=== PATIENT | female | born 1965 | race Caucasian/White ===

== ENCOUNTER 2016-11-11 15:43 | Emergency (ER) | payer OTHER ==
[2016-11-11 16:09] LABS: BASOPHIL % 0.1 % (0.0-0.4); Eosinophil % 3.3 % (0.00-5.0); Granulocytes % 61.4 % (36.0-66.0); Lymphocytes % 24.6 % (24.0-44.0); Mean Cell Volume 96.3 fl (78-100); Mean Corpuscular Hemoglobin 31.5 pg (26-32); Mean Platelet Volume 8.3 fl (6-9.5); Monocytes % 10.6 % (0.0-12.0); Platelet Count 269 K/mm3 (150-450); Red Blood Count 4.54 M/mm3 (4.1-5.4); Red Cell Distribution Width 13.5 % (11.5-14.0)
[2016-11-11 16:25] LABS: COMPLETE URINE MICROSCOPIC? YES; Collection Type VOID
[2016-11-11 16:26] LABS: ADD URINE CULTURE? YES (NO); Bacteria FEW /HPF (NEGATIVE); Epithelial Cells FEW /HPF (FEW)
--- NOTE | 2016-11-11 16:43 | ERPHSYRPT ---
- History of Present Illness Time Seen by Provider: 11/11/16 16:37 Historian: patient Exam Limitations: no limitations Patient Subjective Stated Complaint: pt states she began having right lower abdominal pain that started last pm. pt states her pain is worse with movement. Triage Nursing Assessment: pt pink, warm, dry. abdomen obese. bowels ounds present in all 4 quads. Physician History: The patient is a 51-year-old female brought in by ambulance complaining of increasing right lower quadrant abdominal pain since yesterday. She denies nausea or vomiting. She denies diarrhea. She denies fever or chills. Her past surgical history is significant for and knee surgery. Her past medical history is significant for hypertension, diabetes, kidney stones, and neuropathy. Timing/Duration: yesterday Activities at Onset: none Quality: sharpness Abdominal Pain Onset Location: RLQ Pain Radiation: no radiation Severity of Pain-Max: mild Severity of Pain-Current: moderate Modifying Factors: Improves With: nothing Associated Symptoms: denies symptoms Previous symptoms: no prior history Allergies/Adverse Reactions: methadone [Methadone] Allergy (Unverified 11/11/16 15:49) Rash tetracycline [Tetracycline] Allergy (Unverified 11/11/16 15:49) Rash Home Medications: Methocarbamol 750 mg PO TID 10/10/12 [History] Amlodipine Besylate 10 mg [Norvasc 10 MG] 10 mg PO DAILY 11/06/16 [History] Cholecalciferol (Vitamin D3) [Vitamin D3] 5,000 unit PO DAILY 11/06/16 [History] Gabapentin [Neurontin] 800 mg PO TID 11/06/16 [History] Glyburide Micronized 3 mg [Glynase 3 MG] 3 mg PO DAILY 11/06/16 [History] Lisinopril [Zestril 40 mg] 40 mg PO DAILY 11/06/16 [History] Metoprolol Tartrate 50 mg [Lopressor 50 MG] 50 mg PO BID 11/06/16 [History ] Milnacipran HCl [Savella] 100 mg PO BID 11/06/16 [History] Quetiapine Fumarate [Seroquel Xr] 400 mg PO HS 11/06/16 [History] Quetiapine Fumarate [Seroquel] 50 mg PO TID 11/06/16 [History] Trazodone HCl [Desyrel] 100 mg PO HS 11/06/16 [History] Hx Tetanus, Diphtheria Vaccination/Date Given: Yes (unknown) Hx Influenza Vaccination/Date Given: No Hx Pneumococcal Vaccination/Date Given: No Immunizations Up to Date: Yes - Review of Systems Constitutional: No Fever, No Chills Eyes: No Symptoms Ears, Nose, & Throat: No Symptoms Respiratory: No Cough, No Dyspnea Cardiac: No Chest Pain, No Edema, No Syncope Abdominal/Gastrointestinal: Abdominal Pain Genitourinary Symptoms: No Dysuria Musculoskeletal: No Back Pain, No Neck Pain Skin: No Rash Neurological: No Dizziness, No Focal Weakness, No Sensory Changes Psychological: No Symptoms Endocrine: No Symptoms Hematologic/Lymphatic: No Symptoms Immunological/Allergic: No Symptoms All Other Systems: Reviewed and Negative - Past Medical History Pertinent Past Medical History: Yes Cardiac History: High Cholesterol, Hypertension Endocrine Medical History: Diabetes Type II Musculoskeletal History: Fibromyalgia, Osteoarthritis, Rheumatoid Arthritis Psycho-Social History: Anxiety, Depression Other Medical History: rsd - Past Surgical History Past Surgical History: Yes Gastrointestinal: Cholecystectomy Musculoskeletal: Orthopedic Surgery Female Surgical History: Section Other Surgical History: t&a - Social History Smoking Status: Current every day smoker How long have you smoked: 28 Exposure to second hand smoke: Yes Drug Use: none Patient Lives Alone: No - Female History Hx Last Menstrual Period: 2 months-irregular - Nursing Vital Signs Nursing Vital Signs: Initial Vital Signs Pulse Rate 70 Respiratory Rate 18 Blood Pressure [Right Arm] 130/71 Pain Intensity 0 - Physical Exam General Appearance: no apparent distress, alert Eye Exam: PERRL/EOMI, eyes nml inspection Ears, Nose, Throat Exam: normal ENT inspection, pharynx normal, moist mucous membranes Neck Exam: normal inspection, non-tender, supple, full range of motion Respiratory Exam: normal breath sounds, lungs clear, No respiratory distress Cardiovascular Exam: regular rate/rhythm, normal heart sounds Gastrointestinal/Abdomen Exam: tenderness (RLQ, rebound tenderness), rebound Pelvic Exam: not done Rectal Exam: not done Back Exam: normal inspection Extremity Exam: normal inspection, normal range of motion, pelvis stable Neurologic Exam: alert, oriented x 3, cooperative, normal mood/affect, nml cerebellar function, sensation nml, No motor deficits Skin Exam: normal color, warm, dry SpO2 Interpretation: normal SpO2: 99 Oxygen Delivery: Room Air - CT Exams Abdomen/Pelvis CT Interpretation: Tele-radiologist Report, Normal Appendix, Other (micro nonobstructing calculi bilateral kidneys, Normal appendix, no acute findings per Dr Patel.) Ordered Tests: Active Orders 24 hr Category Date Time Status IV Insertion STAT Care 11/11/16 15:52 Active ABDOMEN AND PELVIS W/0 CONTRAS [CT] Stat Exams 11/11/16 16:46 Taken AMYLASE Stat Lab 11/11/16 16:05 Completed CBC W DIFF Stat Lab 11/11/16 16:05 Completed CMP Stat Lab 11/11/16 16:05 Completed CULTURE,URINE Stat Lab 11/11/16 16:05 Received LIPASE Stat Lab 11/11/16 16:05 Completed UA W/ MICROSCOPIC Stat Lab 11/11/16 16:05 Completed UA W/RFX UR CULTURE Stat Lab 11/11/16 16:05 Completed Medication Summary Discontinued Medications Generic Name Dose Route Start Last Admin Trade Name Freq PRN Reason Stop Dose Admin Sodium Chloride 1,000 mls @ 999 mls/hr 11/11/16 16:45 11/11/16 17:07 Sodium Chloride 0.9% 1000 Ml IV 11/11/16 17:45 999 mls/hr .Q1H1M STA Administration Sodium Chloride Confirm 11/11/16 17:05 Sodium Chloride 0.9% 1000 Ml Administered 11/11/16 17:06 Dose 1,000 mls @ ud .ROUTE .STK-MED ONE Ketorolac Tromethamine 30 mg 11/11/16 16:45 11/11/16 17:07 Toradol 30 Mg Injection IV 11/11/16 16:46 30 mg STAT ONE Administration Ketorolac Tromethamine Confirm 11/11/16 17:05 Toradol 30 Mg Injection Administered 11/11/16 17:06 Dose 30 mg .ROUTE .STK-MED ONE Lab/Rad Data: Laboratory Result Diagrams 11/11/16 16:05 11/11/16 16:05 Laboratory Results 11/11/16 11/11/16 11/11/16 Range/Units 16:05 16:05 16:05 WBC 7.0 (4.0-10.5) K/mm3 RBC 4.54 (4.1-5.4) M/mm3 Hgb 14.3 (12.0-16.0) gm/dl Hct 43.7 (35-47) % MCV 96.3 (78-100) fl MCH 31.5 (26-32) pg MCHC 32.7 (32-36) g/dl RDW 13.5 (11.5-14.0) % Plt Count 269 (150-450) K/mm3 MPV 8.3 (6-9.5) fl Gran % 61.4 (36.0-66.0) % Lymphocytes % 24.6 (24.0-44.0) % Monocytes % 10.6 (0.0-12.0) % Eosinophils % 3.3 (0.00-5.0) % Basophils % 0.1 (0.0-0.4) % Basophils # 0.01 (0-0.4) Sodium 139 (136-145) mEq/L Potassium 3.7 (3.5-5.1) mEq/L Chloride 103 (98-107) mEq/L Carbon Dioxide 27.6 (21-32) mEq/L Anion Gap 11.8 (5-15) MEQ/L BUN 19 (9-20) mg/dL Creatinine 0.97 (0.55-1.30) mg/dl Estimated GFR > 60 ML/MIN Glucose 260 H (70-110) MG/DL Calcium 9.3 (8.5-10.1) mg/dL Total Bilirubin 0.1 L (0.2-1.0) mg/dL AST 19 (15-37) U/L ALT 33 (12-78) U/L Alkaline Phosphatase 145 H (46-116) U/L Serum Total Protein 7.4 (6.4-8.2) gm/dL Albumin 3.5 (3.4-5.0) g/dL Amylase 55 (25-115) U/L Lipase 142 (73-393) U/L Ur Collection Type VOID Urine Color YELLOW (YELLOW) Urine Appearance CLEAR (CLEAR) Urine pH 6.0 (5-6) Ur Specific [place] 1.015 (1.005-1.025) Urine Protein TRACE (Negative) Urine Glucose (UA) 500 (NEGATIVE) mg/dL Urine Ketones NEGATIVE (NEGATIVE) Urine Nitrite NEGATIVE (NEGATIVE) Urine Bilirubin NEGATIVE (NEGATIVE) Urine Urobilinogen 0.2 (0-1) mg/dL Urine WBC (Auto) NEGATIVE (NEGATIVE) Urine RBC (Auto) NEGATIVE (0-5) Leo/ul Ur Epithelial Cells FEW (FEW) /HPF Urine Bacteria FEW (NEGATIVE) /HPF Specimen Received 11/11/16 1600 - Progress Progress: improved, pain not gone completely Counseled pt/family regarding: lab results, diagnosis, rad results - Departure Time of Disposition: 17:53 Departure Disposition: Home Clinical Impression: Abdominal pain, Constipation Condition: Stable Critical Care Time: No Additional Instructions: The labs and the Abd CT scan were normal. Your appendix is normal. You have constipation. Take tylenol and ibuprofen as needed. Take Milk of Magnesia 2 Tbs at bedtime until clear.
[2016-11-11] MEDS ORDERED: TORAdol 30 mg Injection IV ONE (16:45)
[2016-11-11] MEDS ORDERED: Sodium Chloride 0.9% 1000 ML 1,000 ML IV STA (16:45)
[2016-11-11 16:50] LABS: ALBUMIN 3.5 g/dL (3.4-5.0); ALKALINE PHOSPHATASE 145 U/L (46-116); ANION GAP 11.8 MEQ/L (5-15); BILIRUBIN,TOTAL 0.1 mg/dL (0.2-1.0); BLOOD UREA NITROGEN 19 mg/dL (9-20); CHLORIDE 103 mEq/L (98-107); Carbon Dioxide 27.6 mEq/L (21-32); Glucose 260 MG/DL (70-110); LIPASE 142 U/L (73-393); Potassium 3.7 mEq/L (3.5-5.1); SGOT/AST 19 U/L (15-37); SGPT/ALT 33 U/L (12-78); SODIUM 139 mEq/L (136-145); Total Protein 7.4 gm/dL (6.4-8.2)
[2016-11-11] MEDS ORDERED: TORAdol 30 mg Injection ONE (17:05)
[2016-11-11] MEDS ORDERED: Sodium Chloride 0.9% 1000 ML 1,000 ML ONE (17:05)
[2016-11-11 17:30] VITALS: BP 130/71; PULSE 70
[2016-11-11 17:56] VITALS: O2SAT 99
--- NOTE | 2016-11-12 08:33 | XRAY ---
Indication: Severe right lower quadrant pain. Multiple contiguous axial images obtained through the abdomen and pelvis without contrast as ordered. Comparison: CT abdomen September 01, 2007. Lung bases demonstrate mild bibasilar dependent atelectasis and minimal fibrosis/scarring. Stable 5 mm right lateral noncalcified subpleural nodularity favored to be benign given stability over the years. Heart is not enlarged. Noncontrasted stomach and bowel loops appear nonobstructed. Mild diffuse scattered colonic fecal debris throughout. Minimal descending/sigmoid diverticulosis without diverticulitis. Normal appendix. No free fluid/air. There are new nonobstructing bilateral renal micro-calculi and bilateral renal cortical scarring. No hydronephrosis or hydroureter. Again previous cholecystectomy. Remaining liver, pancreas, spleen, adrenal glands, kidneys, ureters, uterus, and bladder appear unremarkable for noncontrast exam. Minimal aortoiliac calcifications without AAA. Osseous structures intact with minimal degenerative changes throughout the spine. Impression: 1. Nonobstructing bilateral renal micro-calculi. 2. Fecal stasis without obstruction. 3. No acute intra-abdominal/pelvic abnormalities on this noncontrast exam. CT DI 35.17
== END 2016-11-11 18:05 | disposition home or self-care (01) ==
LOC: ED 15:43
DX: R10.31 Right lower quadrant pain (principal); K59.00 Constipation, unspecified; I10 Essential (primary) hypertension; E11.8 Type 2 diabetes mellitus with unspecified complications; E78.00 Pure hypercholesterolemia, unspecified; Z79.899 Other long term (current) drug therapy
CPT/HCPCS: 36415; 74176; 80053; 81000; 82150; 83690; 85025; 87086; 96374; 99284; J1885

== ENCOUNTER 2017-02-06 20:14 | Emergency (ER) | payer OTHER ==
[2017-02-06] MEDS ORDERED: NORCO 5/325 MG PO ONE ×2 (20:55→23:25)
--- NOTE | 2017-02-06 20:57 | ERPHSYRPT ---
- History of Present Illness Time Seen by Provider: 02/06/17 20:51 Source: patient, other (N.N.) Exam Limitations: no limitations Patient Subjective Stated Complaint: REPORTS THAT SHE FELL X 1 WEEK AGO, INJURING THE RIGHT KNEE AND IS STILL HAVING PAIN IN THE UPPER KNEE, VITALE AND CALF ON THE RIGHT SIDE Triage Nursing Assessment: WC TO TREATMENT AREA - LIMPING GAIT TO CART. MOVES ALL EXTREMTIES WITH EQUAL STRENGTH - DISABILITY TO THE RIGHT LEG. ALERT/ ORIENTED - UNPLEASANT AFFECT. SKIN PWD - NON-LABORED. RESPS NON-LABORED Physician History: ONE WEEK AGO PT WAS IN HER SISTER'S KITCHEN AND SLIPPED ON WATER WITH RESULTANT PAIN IN HER RIGHT KNEE AND LOWER LEG 2 DAYS LATER CONTINUING THROUGH TODAY; DENIES TINGLING/NUMBNESS OF THE RIGHT FOOT; DENIES PRIOR INJURY TO THE RIGHT KNEE. Allergies/Adverse Reactions: methadone [Methadone] Allergy (Unverified 02/06/17 20:19) Rash tetracycline [Tetracycline] Allergy (Unverified 02/06/17 20:19) Rash Home Medications: Methocarbamol 750 mg PO TID 10/10/12 [History] Amlodipine Besylate 10 mg [Norvasc 10 MG] 10 mg PO DAILY 11/06/16 [History] Cholecalciferol (Vitamin D3) [Vitamin D3] 5,000 unit PO DAILY 11/06/16 [History] Gabapentin [Neurontin] 800 mg PO TID 11/06/16 [History] Glyburide Micronized 3 mg [Glynase 3 MG] 3 mg PO DAILY 11/06/16 [History] Lisinopril [Zestril 40 mg] 40 mg PO DAILY 11/06/16 [History] Metoprolol Tartrate 50 mg [Lopressor 50 MG] 50 mg PO BID 11/06/16 [History ] Milnacipran HCl [Savella] 100 mg PO BID 11/06/16 [History] Quetiapine Fumarate [Seroquel Xr] 400 mg PO HS 11/06/16 [History] Quetiapine Fumarate [Seroquel] 50 mg PO TID 11/06/16 [History] Trazodone HCl [Desyrel] 100 mg PO HS 11/06/16 [History] Hx Tetanus, Diphtheria Vaccination/Date Given: No Hx Influenza Vaccination/Date Given: No Hx Pneumococcal Vaccination/Date Given: No Immunizations Up to Date: Yes - Review of Systems Musculoskeletal: Other (RIGHT KNEE/LOWER LEG PAIN) - Past Medical History Pertinent Past Medical History: Yes Neurological History: Migraines Cardiac History: Hypertension Respiratory History: No Pertinent History Endocrine Medical History: Diabetes Type II Musculoskeletal History: Fibromyalgia, Osteoarthritis Psycho-Social History: Anxiety, Depression Other Medical History: RSD, Fibromyalgia, OA of LB, 2 surgeries on L knee and L shoulder. - Past Surgical History Past Surgical History: Yes Gastrointestinal: Cholecystectomy Musculoskeletal: Orthopedic Surgery Female Surgical History: Section Other Surgical History: t&a - Social History Smoking Status: Current every day smoker How long have you smoked: 28 Exposure to second hand smoke: No Drug Use: none Patient Lives Alone: No - Female History Hx Last Menstrual Period: 3 MONTHS - Nursing Vital Signs Nursing Vital Signs: Initial Vital Signs Temperature 98.5 F Temperature Source Oral Pulse Rate 102 Respiratory Rate 18 Blood Pressure [] 134/79 Pain Intensity 3 - Physical Exam General Appearance: alert Legs Exam: right leg: no evidence of injury Knees Exam: right knee: soft tissue tenderness (MILD POSTERIOR TENDERNESS OF THE RIGHT KNEE WITH LIMITED FLEXION AND FULL EXTENTION) Ankle Exam: right ankle: normal range of motion Foot Exam: right foot: normal range of motion Neuro/Tendon Exam: normal sensation Mental Status Exam: alert, cooperative Skin Exam: warm, dry SpO2 Interpretation: normal SpO2: 94 Oxygen Delivery: Room Air - Course Nursing assessment & vital signs reviewed: Yes - Radiology Exams Right Lower Leg X-ray Interpretation: Interpreted by me, No Fracture Right Knee X-ray Interpretation: Discussed w/ radiologist (NO EVIDENCE OF ACUTE OSSEOUS INJURY.) Ordered Tests: Active Orders 24 hr Category Date Time Status José Luis Bandage Application -[facility] STAT Care 02/06/17 20:55 Active Crutches STAT Care 02/06/17 20:55 Active KNEE (3 VIEWS) Stat Exams 02/06/17 20:55 Completed LOWER LEG Stat Exams 02/06/17 20:57 Completed Medication Summary Generic Name Dose Route Start Last Admin Trade Name Freq PRN Reason Stop Dose Admin Hydrocodone Bitart/Acetaminophen 2 tab 02/06/17 23:25 [place] 5/325 Mg PO 02/06/17 23:26 SENT HOME W/ PATIENT ONE Discontinued Medications Generic Name Dose Route Start Last Admin Trade Name Freq PRN Reason Stop Dose Admin Hydrocodone Bitart/Acetaminophen 2 tab 02/06/17 20:55 02/06/17 21:16 [place] 5/325 Mg PO 02/06/17 20:56 2 tab STAT ONE Administration Hydrocodone Bitart/Acetaminophen Confirm 02/06/17 21:15 [place] 5/325 Mg Administered 02/06/17 21:16 Dose 2 tab .ROUTE .STK-MED ONE - Departure Time of Disposition: 23:29 Departure Disposition: Home Clinical Impression: SPRAIN OF RIGHT KNEE/LEG Condition: Fair Critical Care Time: No Instructions: Prevent Falls, Knee Sprain Additional Instructions: FOLLOW UP WITH PRIVATE DOCTOR TOMORROW. ELEVATE RIGHT KNEE ABOVE HEART LEVEL FOR 24 HOURS. NO WEIGHT BEARING ON RIGHT FOOT FOR 4 DAYS. JOSÉ LUIS WRAP TO RIGHT KNEE FOR 4 DAYS. USE CRUTCHES FOR 2 WEEKS. Prescriptions: Naproxen [Naprosyn] 500 mg PO [id number] PRN #20 tablet PRN Reason: Pain
[2017-02-06] MEDS ORDERED: NORCO 5/325 MG ONE ×2 (21:15→23:27)
--- NOTE | 2017-02-06 23:14 | XRAY ---
Indication: Pain and edema. Comparison: November 15, 2010. 3 views of the right knee demonstrates progressive worsening moderate tricompartmental degenerative changes. There is now lateral patellar bony exostosis versus old injury. No other bony, articular, or soft tissue abnormalities. Comment: Preliminary interpretation was made by C. Patellar finding not reported and not critical.
--- NOTE | 2017-02-06 23:18 | XRAY ---
Indication: Pain and edema. Comparison: None 2 views of the right lower leg demonstrates small plantar heel spur, tiny benign soft tissue calcification anteriorly, and knee degenerative changes reported separately. No other bony, articular, or soft tissue abnormalities.
[2017-02-06 23:39] VITALS: BP 124/68; PULSE 84; O2SAT 99
== END 2017-02-06 23:39 | disposition home or self-care (01) ==
LOC: ED 20:14
DX: S83.91XA Sprain of unspecified site of right knee, initial encounter (principal); W17.89XA Other fall from one level to another, initial encounter
CPT/HCPCS: 73562; 73590; 99283; 99284; A9270-GY

== ENCOUNTER 2017-06-20 19:17 | Emergency (ER) | payer OTHER ==
[2017-06-20] MEDS ORDERED: TORAdol 30 mg Injection IV ONE (19:53)
[2017-06-20] MEDS ORDERED: TORAdol 30 mg Injection ONE (19:58)
--- NOTE | 2017-06-20 19:58 | ERPHSYRPT ---
- History of Present Illness Time Seen by Provider: 06/20/17 19:45 Historian: patient Exam Limitations: no limitations Patient Subjective Stated Complaint: Pt sts pain midsternal non-radiating 7/10 that started at rest approx 1 hour ago. Was sharp pains, now a dull ache. Denies shortness of breath, N/V/D. Triage Nursing Assessment: Pt alert, oriented, answers all question appropriately. Skin pink, warm, dry. Resps non-labored. Pt ambulatory to tx room steady gait noted. 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 Lung sounds clear all ramirez. Heart RRR. Physician History: 52 y/o female with history of HTN and fibromyalgia comes to the ER with complaints of substernal chest pain that started while watching TV this afternoon. Pt describes the pain as sharp and dull, 7/10, constant and pt has not taken any pain meds. Pt denies any fever, chills, cough, shortness of breath or palpitations. Pt also does not recall lifting any heavy object. No stress test in the past and the patient does not take ASA. Timing/Duration: today Activities at Onset: none Quality: dullness, sharpness Location: substernal Chest Pain Radiation: no radiation Severity of Pain-Max: moderate Severity of Pain-Current: moderate Modifying Factors: Improves With: nothing Prior Chest Pain/Cardiac Workup: no prior chest pain Nitro Today/Relief: no nitro taken today Aspirin Treatment Today: 81 mg x 4 Allergies/Adverse Reactions: methadone [Methadone] Allergy (Verified 06/20/17 20:08) Rash tetracycline [Tetracycline] Allergy (Verified 06/20/17 20:08) Rash Home Medications: Methocarbamol 750 mg PO TID 10/10/12 [History] Amlodipine Besylate 10 mg [Norvasc 10 MG] 10 mg PO DAILY 11/06/16 [History] Cholecalciferol (Vitamin D3) [Vitamin D3] 5,000 unit PO DAILY 11/06/16 [History] Gabapentin [Neurontin] 800 mg PO TID 11/06/16 [History] Glyburide Micronized 3 mg [Glynase 3 MG] 3 mg PO DAILY 11/06/16 [History] Lisinopril [Zestril 40 mg] 40 mg PO DAILY 11/06/16 [History] Metoprolol Tartrate 50 mg [Lopressor 50 MG] 50 mg PO BID 11/06/16 [History ] Milnacipran HCl [Savella] 100 mg PO BID 11/06/16 [History] Quetiapine Fumarate [Seroquel Xr] 400 mg PO HS 11/06/16 [History] Quetiapine Fumarate [Seroquel] 50 mg PO TID 11/06/16 [History] Trazodone HCl [Desyrel] 100 mg PO HS 11/06/16 [History] Hx Tetanus, Diphtheria Vaccination/Date Given: No Hx Influenza Vaccination/Date Given: No Hx Pneumococcal Vaccination/Date Given: No Immunizations Up to Date: Yes - Review of Systems Constitutional: No Fever, No Chills Eyes: No Symptoms Ears, Nose, & Throat: No Symptoms Respiratory: No Cough, No Dyspnea Cardiac: Chest Pain, No Edema, No Syncope Abdominal/Gastrointestinal: No Abdominal Pain, No Nausea, No Vomiting, No Diarrhea Genitourinary Symptoms: No Dysuria Musculoskeletal: No Back Pain, No Neck Pain Skin: No Rash Neurological: No Dizziness, No Focal Weakness, No Sensory Changes Psychological: No Symptoms Endocrine: No Symptoms All Other Systems: Reviewed and Negative - Past Medical History Pertinent Past Medical History: Yes Neurological History: Migraines Cardiac History: Hypertension Respiratory History: No Pertinent History Endocrine Medical History: Diabetes Type II Musculoskeletal History: Fibromyalgia, Osteoarthritis Psycho-Social History: Anxiety, Depression Other Medical History: RSD, Fibromyalgia, OA of LB, 2 surgeries on L knee and L shoulder. - Past Surgical History Past Surgical History: Yes Gastrointestinal: Cholecystectomy Musculoskeletal: Orthopedic Surgery Female Surgical History: Section Other Surgical History: t&a - Social History Smoking Status: Current every day smoker How long have you smoked: 25 Exposure to second hand smoke: Yes Drug Use: none Patient Lives Alone: No - Female History Hx Last Menstrual Period: gen-menopausal - Nursing Vital Signs Nursing Vital Signs: Initial Vital Signs Pulse Rate 118 H 06/20/17 19:20 Respiratory Rate 16 06/20/17 19:20 Blood Pressure 159/103 06/20/17 19:20 O2 Sat by Pulse Oximetry 97 06/20/17 19:20 Pain Scale Pain Intensity 4 - Physical Exam General Appearance: no apparent distress, alert Eye Exam: PERRL/EOMI, eyes nml inspection Ears, Nose, Throat Exam: normal ENT inspection, moist mucous membranes Neck Exam: normal inspection, non-tender, supple, full range of motion Respiratory Exam: normal breath sounds, chest tenderness, lungs clear, No respiratory distress Cardiovascular Exam: regular rate/rhythm, normal heart sounds, normal peripheral pulses, tachycardia Gastrointestinal/Abdomen Exam: soft, No tenderness, No mass Back Exam: normal inspection, No CVA tenderness, No vertebral tenderness Extremity Exam: normal range of motion, pedal edema Neurologic Exam: alert, oriented x 3, cooperative, normal mood/affect, sensation nml, No motor deficits Skin Exam: normal color, warm, dry SpO2: 97 Oxygen Delivery: Room Air - Course Nursing assessment & vital signs reviewed: Yes Ordered Tests: Active Orders 24 hr Category Date Time Status EKG-ER Only STAT Care 06/20/17 19:48 Active IV Insertion STAT Care 06/20/17 19:44 Active CHEST 2 VIEWS (PA AND LAT) Stat Exams 06/20/17 19:53 Taken CBC W DIFF Stat Lab 06/20/17 20:02 Completed CK-Creatinine Phosphokinase Stat Lab 06/20/17 20:02 Completed CMP Stat Lab 06/20/17 20:02 Completed D-DIMER QUANTITATION Stat Lab 06/20/17 20:02 Completed NT PRO BNP Stat Lab 06/20/17 20:02 Completed PROTIME WITH INR Stat Lab 06/20/17 20:02 Completed PTT Stat Lab 06/20/17 20:02 Completed TROPONIN Q3H Lab 06/20/17 20:02 Completed TROPONIN Q3H Lab 06/20/17 23:00 Ordered TROPONIN Q3H Lab 06/21/17 02:00 Ordered TROPONIN Q3H Lab 06/21/17 05:00 Ordered TROPONIN Q3H Lab 06/21/17 08:00 Ordered Medication Summary Discontinued Medications Generic Name Dose Route Start Last Admin Trade Name Freq PRN Reason Stop Dose Admin Sodium Chloride 1,000 mls @ 999 mls/hr 06/20/17 20:27 06/20/17 20:30 Sodium Chloride 0.9% 1000 Ml IV 06/20/17 21:27 999 mls/hr .Q1H1M STA Administration Sodium Chloride Confirm 06/20/17 20:28 Sodium Chloride 0.9% 1000 Ml Administered 06/20/17 20:29 Dose 1,000 mls @ ud .ROUTE .STK-MED ONE Ketorolac Tromethamine 30 mg 06/20/17 19:53 06/20/17 19:59 Toradol 30 Mg Injection IV 06/20/17 19:54 30 mg STAT ONE Administration Ketorolac Tromethamine Confirm 06/20/17 19:58 Toradol 30 Mg Injection Administered 06/20/17 19:59 Dose 30 mg .ROUTE .STK-MED ONE Lab/Rad Data: Laboratory Result Diagrams 06/20/17 20:02 06/20/17 20:02 Laboratory Results 06/20/17 06/20/17 06/20/17 Range/Units 20:02 20:02 20:02 WBC (4.0-10.5) K/mm3 RBC (4.1-5.4) M/mm3 Hgb (12.0-16.0) gm/dl Hct (35-47) % MCV (78-100) fl MCH (26-32) pg MCHC (32-36) g/dl RDW (11.5-14.0) % Plt Count (150-450) K/mm3 MPV (6-9.5) fl Gran % (36.0-66.0) % Lymphocytes % (24.0-44.0) % Monocytes % (0.0-12.0) % Eosinophils % (0.00-5.0) % Basophils % (0.0-0.4) % Basophils # (0-0.4) INR 0.87 (0.8-3.0) APTT 23.1 L (25.3-37.0) SECONDS D-Dimer 369 (0-500) ng/mL Sodium 137 (136-145) mEq/L Potassium 3.8 (3.5-5.1) mEq/L Chloride 101 (98-107) mEq/L Carbon Dioxide 26.4 (21-32) mEq/L Anion Gap 13.8 (5-15) MEQ/L BUN 21 H (9-20) mg/dL Creatinine 1.19 (0.55-1.30) mg/dl Estimated GFR 51 ML/MIN Glucose 163 H (70-110) MG/DL Calcium 10.0 (8.5-10.1) mg/dL Total Bilirubin 0.20 (0.2-1.0) mg/dL AST 16 (15-37) U/L ALT 28 (12-78) U/L Alkaline Phosphatase 134 H (46-116) U/L Creatine Kinase 67 (26-192) U/L Troponin I < 0.017 (0.000-0.056) ng/ml NT-Pro-B Natriuret Pep 46 (0-125) pg/ml Serum Total Protein 6.7 (6.4-8.2) gm/dL Albumin 3.5 (3.4-5.0) g/dL 06/20/17 Range/Units 20:02 WBC 10.1 (4.0-10.5) K/mm3 RBC 4.50 (4.1-5.4) M/mm3 Hgb 14.4 (12.0-16.0) gm/dl Hct 42.7 (35-47) % MCV 94.9 (78-100) fl MCH 32.0 (26-32) pg MCHC 33.7 (32-36) g/dl RDW 13.6 (11.5-14.0) % Plt Count 296 (150-450) K/mm3 MPV 8.6 (6-9.5) fl Gran % 63.7 (36.0-66.0) % Lymphocytes % 25.8 (24.0-44.0) % Monocytes % 8.2 (0.0-12.0) % Eosinophils % 2.2 (0.00-5.0) % Basophils % 0.1 (0.0-0.4) % Basophils # 0.01 (0-0.4) INR (0.8-3.0) APTT (25.3-37.0) SECONDS D-Dimer (0-500) ng/mL Sodium (136-145) mEq/L Potassium (3.5-5.1) mEq/L Chloride (98-107) mEq/L Carbon Dioxide (21-32) mEq/L Anion Gap (5-15) MEQ/L BUN (9-20) mg/dL Creatinine (0.55-1.30) mg/dl Estimated GFR ML/MIN Glucose (70-110) MG/DL Calcium (8.5-10.1) mg/dL Total Bilirubin (0.2-1.0) mg/dL AST (15-37) U/L ALT (12-78) U/L Alkaline Phosphatase (46-116) U/L Creatine Kinase (26-192) U/L Troponin I (0.000-0.056) ng/ml NT-Pro-B Natriuret Pep (0-125) pg/ml Serum Total Protein (6.4-8.2) gm/dL Albumin (3.4-5.0) g/dL - Progress Progress: improved Air Movement: good Progress Note: 06/20/17 21:51 Pt feels better after receiving toradol and NS fluids. The EKG and cardiac enzymes as well as d-dimer are within normal limits. Pt initially had a HR of 116 and currently has a HR of 105. Pt has no pain after receiving NS fluids. - Departure Time of Disposition: 21:52 Departure Disposition: Home Clinical Impression: Costochondritis Condition: Stable Critical Care Time: No Referrals: SOCORRO BARNES [Primary Care Provider] - Instructions: Costochondritis Additional Instructions: Follow up with your primary care doctor tomorrow for further evaluation for chest pain. Continue to take naproxen for pain.
[2017-06-20 20:07] LABS: BASOPHIL % 0.1 % (0.0-0.4); Eosinophil % 2.2 % (0.00-5.0); Granulocytes % 63.7 % (36.0-66.0); Lymphocytes % 25.8 % (24.0-44.0); Mean Cell Volume 94.9 fl (78-100); Mean Platelet Volume 8.6 fl (6-9.5); Monocytes % 8.2 % (0.0-12.0); Platelet Count 296 K/mm3 (150-450); Red Cell Distribution Width 13.6 % (11.5-14.0); White Blood Count 10.1 K/mm3 (4.0-10.5)
[2017-06-20 20:24] LABS: ALBUMIN 3.5 g/dL (3.4-5.0); ANION GAP 13.8 MEQ/L (5-15); BILIRUBIN,TOTAL 0.2 mg/dL (0.2-1.0); Carbon Dioxide 26.4 mEq/L (21-32); INR 0.87 (0.8-3.0); PROTIME 9.7 SECONDS (9.95-12.35); Potassium 3.8 mEq/L (3.5-5.1); Total Protein 6.7 gm/dL (6.4-8.2)
[2017-06-20 20:27] LABS: PTT 23.1 SECONDS (25.3-37.0)
[2017-06-20] MEDS ORDERED: Sodium Chloride 0.9% 1000 ML 1,000 ML IV STA (20:27)
[2017-06-20] MEDS ORDERED: Sodium Chloride 0.9% 1000 ML 1,000 ML ONE (20:28)
[2017-06-20 22:07] VITALS: BP 144/76; PULSE 88; O2SAT 99
--- NOTE | 2017-06-21 08:50 | XRAY ---
Indication: Short of breath, fever, and cough. Comparison: October 31, 2011. PA/lateral chest again demonstrates normal heart and lungs. 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 No new/acute findings.
== END 2017-06-20 22:07 | disposition home or self-care (01) ==
LOC: ED 19:17
DX: M94.0 Chondrocostal junction syndrome [Tietze] (principal); I10 Essential (primary) hypertension; M79.7 Fibromyalgia; R07.89 Other chest pain; Z79.899 Other long term (current) drug therapy; E11.9 Type 2 diabetes mellitus without complications
CPT/HCPCS: 36000; 36415; 71020; 80053; 82550; 83880; 84484; 85025; 85379; 85610; 85730; 93005; 96360; 96374; 99283; 99284; J1885

== ENCOUNTER 2018-02-19 23:09 | Emergency (ER) | payer SELFPAY ==
[2018-02-19] MEDS ORDERED: Pepcid 20 MG VIAL IV ONE (23:33)
[2018-02-19] MEDS ORDERED: Zofran 4 MG/2 ML VIAL IV ONE (23:33)
[2018-02-19] MEDS ORDERED: solu-MEDROL 125 MG IV ONE (23:34)
[2018-02-19] MEDS ORDERED: DUONEB 0.5-3 MG/3 ml Neb IH ONE ×2 (23:34→23:39)
--- NOTE | 2018-02-19 23:39 | ERPHSYRPT ---
- History of Present Illness Time Seen by Provider: 02/19/18 23:24 Historian: patient Exam Limitations: no limitations Patient Subjective Stated Complaint: SOB, coughing, nausea, vomiting, diarhea, weakness, started approx 2 weeks ago Triage Nursing Assessment: Pt A&O x3, complains of SOB, vomiting, nausea, diarhea, coughing for approx 2 weeks, pulses normal, BP 181/123, fever at home, T 98.1 now, last vomiting and bowel movement just prior to coming to hospital, wheezes heard in right side of chest, shallow breath sounds on the left, states she has had thick, clear mucus while coughing Physician History: PT started c/o cough, congestion, SOB, chest pain, nausea, vomiting and diarrhea 3 days ago. She denies fever, but had chills, denies productive cough, hemoptysis, or vomiting blood. She is a smoker, denies cardiac history, does not use inhaler. Timing/Duration: day(s) (3) Activities at Onset: none Quality: pressure Location: central Chest Pain Radiation: no radiation Severity of Pain-Max: moderate Severity of Pain-Current: moderate Modifying Factors: Improves With: coughing Associated Symptoms: nausea, vomiting, cough, hurts to breathe, chills Prior Chest Pain/Cardiac Workup: no prior cardiac workup Nitro Today/Relief: no nitro taken today Aspirin Treatment Today: no aspirin today Allergies/Adverse Reactions: methadone [Methadone] Allergy (Verified 02/19/18 23:34) Rash tetracycline [Tetracycline] Allergy (Verified 02/19/18 23:34) Rash Home Medications: Methocarbamol 750 mg PO TID 10/10/12 [History] Amlodipine Besylate 10 mg [Norvasc 10 MG] 10 mg PO DAILY 11/06/16 [History] Cholecalciferol (Vitamin D3) [Vitamin D3] 5,000 unit PO DAILY 11/06/16 [History] Gabapentin [Neurontin] 800 mg PO TID 11/06/16 [History] Glyburide Micronized 3 mg [Glynase 3 MG] 3 mg PO DAILY 11/06/16 [History] Lisinopril [Zestril 40 mg] 40 mg PO DAILY 11/06/16 [History] Metoprolol Tartrate 50 mg [Lopressor 50 MG] 50 mg PO BID 11/06/16 [History ] Milnacipran HCl [Savella] 100 mg PO BID 11/06/16 [History] Quetiapine Fumarate [Seroquel Xr] 400 mg PO HS 11/06/16 [History] Quetiapine Fumarate [Seroquel] 50 mg PO TID 11/06/16 [History] Trazodone HCl [Desyrel] 100 mg PO HS 11/06/16 [History] Hx Tetanus, Diphtheria Vaccination/Date Given: No Hx Influenza Vaccination/Date Given: No Hx Pneumococcal Vaccination/Date Given: No - Review of Systems Constitutional: Chills Respiratory: Cough, Dyspnea Cardiac: Chest Pain, No Edema, No Syncope Abdominal/Gastrointestinal: Nausea, Vomiting, Diarrhea, No Abdominal Pain All Other Systems: Reviewed and Negative - Past Medical History Pertinent Past Medical History: Yes Neurological History: Migraines Cardiac History: Hypertension Respiratory History: No Pertinent History Endocrine Medical History: Diabetes Type II Musculoskeletal History: Fibromyalgia, Osteoarthritis Psycho-Social History: Anxiety, Depression Other Medical History: RSD, Fibromyalgia, OA of LB, 2 surgeries on L knee and L shoulder. - Past Surgical History Past Surgical History: Yes Gastrointestinal: Cholecystectomy Musculoskeletal: Orthopedic Surgery Female Surgical History: Section Other Surgical History: t&a - Social History Smoking Status: Current every day smoker How long have you smoked: 25 Exposure to second hand smoke: Yes Drug Use: none Patient Lives Alone: No - Nursing Vital Signs Nursing Vital Signs: Initial Vital Signs Temperature 98.1 F 02/19/18 23:17 Pulse Rate 95 H 02/19/18 23:17 Respiratory Rate 30 H 02/19/18 23:17 Blood Pressure 181/123 02/19/18 23:17 O2 Sat by Pulse Oximetry 95 02/19/18 23:17 Pain Scale Pain Intensity 4 - Physical Exam General Appearance: no apparent distress Eye Exam: eyes nml inspection Ears, Nose, Throat Exam: normal ENT inspection, pharynx normal, moist mucous membranes Neck Exam: normal inspection, non-tender, supple, No mass, No carotid bruit, No JVD Respiratory Exam: airway intact, rhonchi, wheezing (mild, diffuse), No chest tenderness, No respiratory distress Cardiovascular Exam: regular rate/rhythm, normal heart sounds, normal peripheral pulses, No murmur Gastrointestinal/Abdomen Exam: soft, normal bowel sounds, organomegaly, No tenderness, No distention, No mass, No guarding, No ecchymosis, No rebound Extremity Exam: normal inspection, No calf tenderness, No jordana's sign, No pedal edema Neurologic Exam: alert, oriented x 3, normal mood/affect Skin Exam: normal color, warm, dry, No rash Lymphatic Exam: No adenopathy SpO2 Interpretation: normal SpO2: 95 Oxygen Delivery: Room Air - Course Nursing assessment & vital signs reviewed: Yes EKG Interpreted by Me: RATE (121), Sinus Tach, Left Yolyn Deviation, Non- specific ST Changes, Other (repeat Ek:37 AM: unchanged) - Radiology Exams Chest X-ray Interpretation: Interpreted by me, Negative Ordered Tests: Active Orders 24 hr Category Date Time Status Timber Sprinkler STAT Care 02/19/18 23:29 Active EKG-ER Only STAT Care 02/19/18 23:28 Active EKG-ER Only STAT Care 02/20/18 01:56 Active IV Insertion STAT Care 02/19/18 23:28 Active NPO (ED) STAT Care 02/19/18 23:33 Active Oxygen-ED Only NASAL CANNULA 2 lpm Care 02/19/18 23:28 Active CHEST 2 VIEWS (PA AND LAT) Stat Exams 02/19/18 23:29 Taken BLOOD CULTURE Stat Lab 02/19/18 23:50 Received CBC W DIFF Stat Lab 02/19/18 23:40 Completed CK-Creatinine Phosphokinase Stat Lab 02/19/18 23:40 Completed CMP Stat Lab 02/19/18 23:40 Completed CULTURE, THROAT Stat Lab 02/19/18 23:55 Received LIPASE Stat Lab 02/19/18 23:40 Completed Lactic Acid Stat Lab 02/19/18 23:45 Completed NT PRO BNP Stat Lab 02/19/18 23:40 Completed STREP SCREEN-BETA A Stat Lab 02/19/18 23:55 Completed TROPONIN Q3H Lab 02/19/18 23:40 Completed TROPONIN Q3H Lab 02/20/18 02:00 Completed TROPONIN Q3H Lab 02/20/18 05:30 Ordered TROPONIN Q3H Lab 02/20/18 08:30 Ordered TROPONIN Q3H Lab 02/20/18 11:30 Ordered UA W/RFX UR CULTURE Stat Lab 02/19/18 23:31 Uncollected Urine Triage Profile Stat Lab 02/19/18 23:29 Uncollected Respiratory Nebulizer STAT RT 02/19/18 23:34 Completed Medication Summary Discontinued Medications Generic Name Dose Route Start Last Admin Trade Name Sharon PRN Reason Stop Dose Admin Albuterol/Ipratropium 3 ml 02/19/18 23:34 02/20/18 00:03 Duoneb 0.5-3 Mg/3 Ml Neb IH 02/19/18 23:35 3 ml STAT ONE Administration Albuterol/Ipratropium Confirm 02/19/18 23:39 Duoneb 0.5-3 Mg/3 Ml Neb Administered 02/19/18 23:40 Dose 3 ml IH .STK-MED ONE Famotidine 20 mg 02/19/18 23:33 02/20/18 00:29 Pepcid 20 Mg Vial IV 02/19/18 23:34 Not Given STAT ONE Famotidine 20 mg 02/20/18 00:05 02/20/18 00:21 Pepcid 20 Mg PO 02/20/18 00:06 20 mg STAT ONE Administration Famotidine Confirm 02/20/18 00:13 Pepcid 20 Mg Administered 02/20/18 00:14 Dose 20 mg .ROUTE .STK-MED ONE Sodium Chloride 1,000 mls @ 100 mls/hr 02/19/18 23:45 02/20/18 00:30 Sodium Chloride 0.9% 1000 Ml IV 03/21/18 23:44 Not Given .Q10H JACKELIN Methylprednisolone Sodium Succinate 125 mg 02/19/18 23:34 02/20/18 00:31 Solu-Medrol 125 Mg IV 02/19/18 23:35 Not Given STAT ONE Methylprednisolone Sodium Succinate 125 mg 02/20/18 00:06 02/20/18 00:21 Solu-Medrol 125 Mg IM 02/20/18 00:07 125 mg STAT ONE Administration Methylprednisolone Sodium Succinate Confirm 02/20/18 00:13 Solu-Medrol 125 Mg Administered 02/20/18 00:14 Dose 125 mg .ROUTE .STK-MED ONE Ondansetron HCl 4 mg 02/19/18 23:33 02/20/18 00:31 Zofran 4 Mg/2 Ml Vial IV 02/19/18 23:34 Not Given STAT ONE Ondansetron HCl 4 mg 02/20/18 00:06 02/20/18 00:21 Zofran Odt 4 Mg PO 02/20/18 00:07 4 mg STAT ONE Administration Ondansetron HCl Confirm 02/20/18 00:13 Zofran Odt 4 Mg Administered 02/20/18 00:14 Dose 4 mg .ROUTE .STK-MED ONE Lab/Rad Data: Laboratory Result Diagrams 02/19/18 23:40 02/19/18 23:40 Laboratory Results 02/20/18 02/19/18 02/19/18 Range/Units 02:00 23:55 23:55 WBC (4.0-10.5) K/mm3 RBC (4.1-5.4) M/mm3 Hgb (12.0-16.0) gm/dl Hct (35-47) % MCV (78-100) fl MCH (26-32) pg MCHC (32-36) g/dl RDW (11.5-14.0) % Plt Count (150-450) K/mm3 MPV (6-9.5) fl Gran % (36.0-66.0) % Eos # (Auto) (0-0.5) Absolute Lymphs (auto) (1.0-4.6) Absolute Monos (auto) (0.0-1.3) Lymphocytes % (24.0-44.0) % Monocytes % (0.0-12.0) % Eosinophils % (0.00-5.0) % Basophils % (0.0-0.4) % Absolute Granulocytes (1.4-6.9) Basophils # (0-0.4) Sodium (137-145) mmol/L Potassium (3.5-5.1) mmol/L Chloride (98-107) mmol/L Carbon Dioxide (22-30) mmol/L Anion Gap (5-15) MEQ/L BUN (7-17) mg/dL Creatinine (0.52-1.04) mg/dL Estimated GFR ML/MIN Glucose (74-106) mg/dL Lactic Acid (0.4-2.0) Calcium (8.4-10.2) mg/dL Total Bilirubin (0.2-1.3) mg/dL AST (14-36) U/L ALT (0-35) U/L Alkaline Phosphatase (38-126) U/L Creatine Kinase (30-135) U/L Troponin I < 0.012 (0.000-0.034) ng/mL NT-Pro-B Natriuret Pep (0-900) pg/mL Serum Total Protein (6.3-8.2) g/dL Albumin (3.5-5.0) g/dL Lipase (23-300) U/L Influenza Type A Ag NEGATIVE (NEGATIVE) Influenza Type B Ag NEGATIVE (NEGATIVE) RSV (PCR) NEGATIVE (Negative) Streptococcus Screen NEGATIVE (Negative) 02/19/18 02/19/18 02/19/18 Range/Units 23:45 23:40 23:40 WBC (4.0-10.5) K/mm3 RBC (4.1-5.4) M/mm3 Hgb (12.0-16.0) gm/dl Hct (35-47) % MCV (78-100) fl MCH (26-32) pg MCHC (32-36) g/dl RDW (11.5-14.0) % Plt Count (150-450) K/mm3 MPV (6-9.5) fl Gran % (36.0-66.0) % Eos # (Auto) (0-0.5) Absolute Lymphs (auto) (1.0-4.6) Absolute Monos (auto) (0.0-1.3) Lymphocytes % (24.0-44.0) % Monocytes % (0.0-12.0) % Eosinophils % (0.00-5.0) % Basophils % (0.0-0.4) % Absolute Granulocytes (1.4-6.9) Basophils # (0-0.4) Sodium (137-145) mmol/L Potassium (3.5-5.1) mmol/L Chloride (98-107) mmol/L Carbon Dioxide (22-30) mmol/L Anion Gap (5-15) MEQ/L BUN (7-17) mg/dL Creatinine (0.52-1.04) mg/dL Estimated GFR ML/MIN Glucose (74-106) mg/dL Lactic Acid 1.6 (0.4-2.0) Calcium (8.4-10.2) mg/dL Total Bilirubin (0.2-1.3) mg/dL AST (14-36) U/L ALT (0-35) U/L Alkaline Phosphatase (38-126) U/L Creatine Kinase (30-135) U/L Troponin I 0.013 (0.000-0.034) ng/mL NT-Pro-B Natriuret Pep (0-900) pg/mL Serum Total Protein (6.3-8.2) g/dL Albumin (3.5-5.0) g/dL Lipase 93 (23-300) U/L Influenza Type A Ag (NEGATIVE) Influenza Type B Ag (NEGATIVE) RSV (PCR) (Negative) Streptococcus Screen (Negative) 02/19/18 02/19/18 Range/Units 23:40 23:40 WBC 7.6 (4.0-10.5) K/mm3 RBC 4.88 (4.1-5.4) M/mm3 Hgb 15.8 (12.0-16.0) gm/dl Hct 47.1 H (35-47) % MCV 96.5 (78-100) fl MCH 32.4 H (26-32) pg MCHC 33.5 (32-36) g/dl RDW 13.8 (11.5-14.0) % Plt Count 269 (150-450) K/mm3 MPV 8.6 (6-9.5) fl Gran % 60.3 (36.0-66.0) % Eos # (Auto) 0.25 (0-0.5) Absolute Lymphs (auto) 2.10 (1.0-4.6) Absolute Monos (auto) 0.63 (0.0-1.3) Lymphocytes % 27.8 (24.0-44.0) % Monocytes % 8.3 (0.0-12.0) % Eosinophils % 3.3 (0.00-5.0) % Basophils % 0.3 (0.0-0.4) % Absolute Granulocytes 4.56 (1.4-6.9) Basophils # 0.02 (0-0.4) Sodium 140 (137-145) mmol/L Potassium 3.4 L (3.5-5.1) mmol/L Chloride 105 (98-107) mmol/L Carbon Dioxide 27 (22-30) mmol/L Anion Gap 11.1 (5-15) MEQ/L BUN 15 (7-17) mg/dL Creatinine 0.72 (0.52-1.04) mg/dL Estimated GFR > 60.0 ML/MIN Glucose 173 H (74-106) mg/dL Lactic Acid (0.4-2.0) Calcium 9.7 (8.4-10.2) mg/dL Total Bilirubin 0.20 (0.2-1.3) mg/dL AST 30 (14-36) U/L ALT 34 (0-35) U/L Alkaline Phosphatase 126 (38-126) U/L Creatine Kinase 42 (30-135) U/L Troponin I (0.000-0.034) ng/mL NT-Pro-B Natriuret Pep 225 (0-900) pg/mL Serum Total Protein 7.1 (6.3-8.2) g/dL Albumin 4.0 (3.5-5.0) g/dL Lipase (23-300) U/L Influenza Type A Ag (NEGATIVE) Influenza Type B Ag (NEGATIVE) RSV (PCR) (Negative) Streptococcus Screen (Negative) - Progress Progress: improved Air Movement: good Progress Note: 02/20/18 03:25 Improved after im Solumedrol, Duoneb, afebrile, no severe pain or shortness of breath, stable. I discussed all results with her,will discharge her on PO Zithromax, Medrol dosepak, Zofran ODT and Albuterol inhaler. She was advised to follow up with her doctor next week, and return if severe shortness of breath , vomiting, fever> 103 F or chest pain. Blood Culture(s) Obtained: Yes Antibiotics given: No Counseled pt/family regarding: lab results, diagnosis, need for follow-up, rad results - Departure Time of Disposition: 03:28 Departure Disposition: Home Clinical Impression: Bronchitis Condition: Stable Critical Care Time: No Referrals: SOCORRO BARNES [Primary Care Provider] - Instructions: Vomiting -- Adult, Acute Bronchitis, Adult (DC) Additional Instructions: Rest x 2-3 days, drink plenty of fluids, follow up with your physician next week ! return if severe shortness of breath, vomiting, fever> 103 F! Prescriptions: Ondansetron ODT 4 MG [Zofran Odt 4 mg] 4 mg PO Q6H PRN PRN #10 tab.rapdis PRN Reason: Nausea/Vomiting Albuterol Sulfate [Albuterol Sulfate Hfa] 8.5 gm IH Q6H PRN #1 [email or web address] PRN Reason: Shortness Of Breath/Wheezing Azithromycin 250 mg [Zithromax 250 MG TABLET] 250 mg PO ZPACK #6 tablet Methylprednisolone Packet [Medrol Dosepack] 4 mg PO UD #1 packet
[2018-02-19] MEDS ORDERED: Sodium Chloride 0.9% 1000 ML 1,000 ML IV SCH (23:45)
[2018-02-20] MEDS ORDERED: Pepcid 20 MG PO ONE (00:05)
[2018-02-20] MEDS ORDERED: solu-MEDROL 125 MG IM ONE (00:06)
[2018-02-20] MEDS ORDERED: ZOFRAN ODT 4 MG PO ONE (00:06)
[2018-02-20] MEDS ORDERED: Pepcid 20 MG ONE (00:13)
[2018-02-20] MEDS ORDERED: ZOFRAN ODT 4 MG ONE (00:13)
[2018-02-20] MEDS ORDERED: solu-MEDROL 125 MG ONE (00:13)
[2018-02-20 00:14] LABS: BASOPHIL % 0.3 % (0.0-0.4); Basophil (Absolute #) 0.02 (0-0.4); Eosinophil % 3.3 % (0.00-5.0); Eosinophil (Absolute #) 0.25 (0-0.5); Granulocyte Absolute (ANC) 4.56 (1.4-6.9); Granulocytes % 60.3 % (36.0-66.0); Hematocrit 47.1 % (35-47); Hemoglobin 15.8 gm/dl (12.0-16.0); Lymphocytes % 27.8 % (24.0-44.0); Mean Cell Volume 96.5 fl (78-100); Mean Corpuscular Hemoglobin 32.4 pg (26-32); Mean Corpuscular Hgb Concent. 33.5 g/dl (32-36); Mean Platelet Volume 8.6 fl (6-9.5); Monocyte (Absolute #) 0.63 (0.0-1.3); Monocytes % 8.3 % (0.0-12.0); Platelet Count 269 K/mm3 (150-450); Red Blood Count 4.88 M/mm3 (4.1-5.4); Red Cell Distribution Width 13.8 % (11.5-14.0); White Blood Count 7.6 K/mm3 (4.0-10.5)
[2018-02-20 00:34] LABS: ALKALINE PHOSPHATASE 126 U/L (38-126); ANION GAP 11.1 MEQ/L (5-15); BLOOD UREA NITROGEN 15 mg/dL (7-17); CHLORIDE 105 mmol/L (98-107); CK-Creatinine Phosphokinase 42 U/L (30-135); Calcium 9.7 mg/dL (8.4-10.2); Carbon Dioxide 27 mmol/L (22-30); Creatinine 1 0.72 mg/dL (0.52-1.04); Glucose 173 mg/dL (74-106); Potassium 3.4 mmol/L (3.5-5.1); SGOT/AST 30 U/L (14-36); SGPT/ALT 34 U/L (0-35); SODIUM 140 mmol/L (137-145); Total Protein 7.1 g/dL (6.3-8.2)
[2018-02-20 00:42] LABS: NT PRO BNP 225 pg/mL (0-900)
[2018-02-20 00:54] LABS: INFLUENZA A NEGATIVE (NEGATIVE); INFLUENZA B NEGATIVE (NEGATIVE); RESPIRATORY SYNCTIAL VIRUS NEGATIVE (Negative)
[2018-02-20 03:38] VITALS: BP 178/110; PULSE 95; O2SAT 94
== END 2018-02-20 03:52 | disposition home or self-care (01) ==
LOC: ED 23:09
DX: J40 Bronchitis, not specified as acute or chronic (principal); Z79.899 Other long term (current) drug therapy; R11.2 Nausea with vomiting, unspecified; R19.7 Diarrhea, unspecified; R07.9 Chest pain, unspecified
CPT/HCPCS: 36415; 71046; 80053; 82550; 83605; 83690; 83880; 84484; 85025; 87040; 87070; 87430; 87631; 93005; 94640; 96372; 99284; J2930; Q0162; A9270-GY

== ENCOUNTER 2018-07-07 08:45 | Emergency (ER) | payer SELFPAY ==
--- NOTE | 2018-07-07 08:53 | ERPHSYRPT ---
- History of Present Illness Time Seen by Provider: 07/07/18 08:52 Source: patient, family Exam Limitations: no limitations Physician History: 53 y/o morbidly obese, diabetic white female with h/o htn on lisinopril presents with htn concerns. sx of headache and blurred vision intermittently for last few days. pt took 80mg lisinopril at 0430 this am. pt denies cp, denies soa, and denies abd pain. pt also c/o right flank pain. pt has chronic lbp and osteoarthritis. she does not have urinary sx and has not fallen Timing/Duration: day(s) (several ), intermittent Severity: mild Modifying Factors: Improves With: nothing Associated Symptoms: headaches, other (intermittent blurred vision) Allergies/Adverse Reactions: methadone [Methadone] Allergy (Verified 07/07/18 09:00) Rash tetracycline [Tetracycline] Allergy (Verified 07/07/18 09:00) Rash Home Medications: Gabapentin [Neurontin] 800 mg PO TID 11/06/16 [History] Glyburide Micronized 3 mg [Glynase 3 MG] 3 mg PO DAILY 11/06/16 [History] Lisinopril [Zestril 40 mg] 40 mg PO DAILY 11/06/16 [History] Trazodone HCl [Desyrel] 200 mg PO HS 11/06/16 [History] Hx Tetanus, Diphtheria Vaccination/Date Given: No Hx Influenza Vaccination/Date Given: No Hx Pneumococcal Vaccination/Date Given: No - Review of Systems Constitutional: No Symptoms Eyes: Other (intermittent blurred vision) Ears, Nose, & Throat: No Symptoms Respiratory: No Symptoms, No Cough, No Dyspnea, No Stridor, No Wheezing Cardiac: No Symptoms, No Chest Pain, No Palpitations, No Syncope Abdominal/Gastrointestinal: No Symptoms, No Abdominal Pain, No Nausea, No Vomiting, No Diarrhea Genitourinary Symptoms: No Symptoms, No Dysuria, No Frequency, No Hematuria Musculoskeletal: No Symptoms Skin: No Symptoms Neurological: Headache, No Dizziness, No Speech Changes Psychological: No Symptoms Endocrine: No Symptoms Hematologic/Lymphatic: No Symptoms Immunological/Allergic: No Symptoms All Other Systems: Reviewed and Negative - Past Medical History Pertinent Past Medical History: Yes Neurological History: Migraines Cardiac History: Hypertension Respiratory History: No Pertinent History Endocrine Medical History: Diabetes Type II Musculoskeletal History: Fibromyalgia, Osteoarthritis Psycho-Social History: Anxiety, Depression Other Medical History: RSD, Fibromyalgia, OA of LB, 2 surgeries on L knee and L shoulder. - Past Surgical History Past Surgical History: Yes Gastrointestinal: Cholecystectomy Musculoskeletal: Orthopedic Surgery Female Surgical History: Section Other Surgical History: t&a - Social History Smoking Status: Current every day smoker How long have you smoked: 25 Exposure to second hand smoke: Yes Drug Use: none Patient Lives Alone: No - Nursing Vital Signs Nursing Vital Signs: Initial Vital Signs Temperature 97.4 F 07/07/18 08:49 Pulse Rate 95 H 07/07/18 08:49 Blood Pressure 201/116 07/07/18 08:49 O2 Sat by Pulse Oximetry 97 07/07/18 08:49 Pain Scale Pain Intensity 8 - Physical Exam General Appearance: mild distress, alert, anxiety Eye Exam: PERRL/EOMI, eyes nml inspection Ears, Nose, Throat Exam: normal ENT inspection, TMs normal, moist mucous membranes Neck Exam: normal inspection, non-tender, supple, full range of motion Respiratory Exam: normal breath sounds, lungs clear, airway intact, No chest tenderness, No respiratory distress, No accessory muscle use, No rhonchi, No wheezing, No stridor Cardiovascular Exam: regular rate/rhythm, normal heart sounds, normal peripheral pulses Gastrointestinal/Abdomen Exam: soft, normal bowel sounds, No tenderness, No guarding, No rebound Pelvic Exam: not done Rectal Exam: not done Back Exam: normal inspection, normal range of motion, CVA tenderness (right), No vertebral tenderness, No muscle spasm Extremity Exam: normal inspection, normal range of motion, pelvis stable Neurologic Exam: alert, oriented x 3, cooperative, foam rubber curer II-XII nml as tested Skin Exam: normal color, warm, dry Lymphatic Exam: No adenopathy SpO2 Interpretation: normal - Course Nursing assessment & vital signs reviewed: Yes EKG Interpreted by Me: RATE (86), NORMAL AXIS (new t wave abnormalities compared to ekg dated 02/20/18) Ordered Tests: Active Orders 24 hr Category Date Time Status Fire [employer] Specialist STAT Care 07/07/18 09:15 Active EKG-ER Only STAT Care 07/07/18 09:14 Active IV Insertion STAT Care 07/07/18 09:14 Active Pulse Oximetry (ED) STAT Care 07/07/18 09:14 Active HEAD WITHOUT CONTRAST [CT] Stat Exams 07/07/18 09:17 Completed CBC W DIFF Stat Lab 07/07/18 09:24 Completed CMP Stat Lab 07/07/18 09:24 Completed TROPONIN Q3H Lab 07/07/18 10:45 Completed TROPONIN Q3H Lab 07/07/18 13:45 Ordered TROPONIN Q3H Lab 07/07/18 16:45 Ordered TROPONIN Q3H Lab 07/07/18 19:45 Ordered TROPONIN Q3H Lab 07/07/18 22:45 Ordered Urinalysis with Microscopy Stat Lab 07/07/18 09:34 Completed Medication Summary Discontinued Medications Generic Name Dose Route Start Last Admin Trade Name Freq PRN Reason Stop Dose Admin Enalaprilat 1.25 mg 07/07/18 09:14 07/07/18 09:27 Vasotec I.V. 2.5 Mg IV 07/07/18 09:15 1.25 mg STAT ONE Administration Enalaprilat Confirm 07/07/18 09:21 Vasotec I.V. 2.5 Mg Administered 07/07/18 09:22 Dose 2.5 mg IV .STK-MED ONE Enalaprilat Confirm 07/07/18 11:11 Vasotec I.V. 2.5 Mg Administered 07/07/18 11:12 Dose 2.5 mg IV .STK-MED ONE Enalaprilat 1.25 mg 07/07/18 11:18 07/07/18 11:20 Vasotec I.V. 2.5 Mg IV 07/07/18 11:19 1.25 mg STAT ONE Administration Morphine Sulfate 2 mg 07/07/18 09:18 07/07/18 09:27 Morphine Sulfate 2 Mg Inj IV 07/07/18 09:19 2 mg STAT ONE Administration Morphine Sulfate Confirm 07/07/18 09:22 Morphine Sulfate 2 Mg Inj Administered 07/07/18 09:23 Dose 2 mg .ROUTE .STK-MED ONE Ondansetron HCl 4 mg 07/07/18 09:19 07/07/18 09:27 Zofran 4 Mg/2 Ml Vial IV 07/07/18 09:20 4 mg STAT ONE Administration Ondansetron HCl Confirm 07/07/18 09:21 Zofran 4 Mg/2 Ml Vial Administered 07/07/18 09:22 Dose 4 mg .ROUTE .STK-MED ONE Lab/Rad Data: Laboratory Result Diagrams 07/07/18 09:24 07/07/18 09:24 Laboratory Results 07/07/18 07/07/18 07/07/18 Range/Units 10:45 09:34 09:24 WBC (4.0-10.5) K/mm3 RBC (4.1-5.4) M/mm3 Hgb (12.0-16.0) gm/dl Hct (35-47) % MCV (78-100) fl MCH (26-32) pg MCHC (32-36) g/dl RDW (11.5-14.0) % Plt Count (150-450) K/mm3 MPV (6-9.5) fl Gran % (36.0-66.0) % Eos # (Auto) (0-0.5) Absolute Lymphs (auto) (1.0-4.6) Absolute Monos (auto) (0.0-1.3) Lymphocytes % (24.0-44.0) % Monocytes % (0.0-12.0) % Eosinophils % (0.00-5.0) % Basophils % (0.0-0.4) % Absolute Granulocytes (1.4-6.9) Basophils # (0-0.4) Sodium 139 (137-145) mmol/L Potassium 4.6 (3.5-5.1) mmol/L Chloride 102 (98-107) mmol/L Carbon Dioxide 28 (22-30) mmol/L Anion Gap 13.7 (5-15) MEQ/L BUN 17 (7-17) mg/dL Creatinine 0.86 (0.52-1.04) mg/dL Estimated GFR > 60.0 ML/MIN Glucose 198 H (74-106) mg/dL Calcium 10.4 H (8.4-10.2) mg/dL Total Bilirubin 0.20 (0.2-1.3) mg/dL AST 28 (14-36) U/L ALT 22 (0-35) U/L Alkaline Phosphatase 154 H (38-126) U/L Troponin I < 0.012 (0.000-0.034) ng/mL Serum Total Protein 7.1 (6.3-8.2) g/dL Albumin 4.0 (3.5-5.0) g/dL Urine Color STRAW (YELLOW) Urine Appearance CLEAR (CLEAR) Urine pH 7.0 (5-6) Ur Specific [place] 1.011 (1.005-1.025) Urine Protein 100 (Negative) Urine Ketones NEGATIVE (NEGATIVE) Urine Blood SMALL (0-5) Leo/ul Urine Nitrite NEGATIVE (NEGATIVE) Urine Bilirubin NEGATIVE (NEGATIVE) Urine Urobilinogen NEGATIVE (0-1) mg/dL Ur Leukocyte Esterase TRACE (NEGATIVE) Urine WBC (Auto) 3-5 (0-5) /HPF Urine RBC (Auto) 3-5 (0-2) /HPF U Epithel Cells (Auto) NONE (FEW) /HPF Urine Bacteria (Auto) RARE (NEGATIVE) /HPF Urine Mucus (Auto) SLIGHT (NEGATIVE) /HPF Urine Glucose NEGATIVE (NEGATIVE) mg/dL 07/07/18 Range/Units 09:24 WBC 6.9 (4.0-10.5) K/mm3 RBC 4.50 (4.1-5.4) M/mm3 Hgb 14.5 (12.0-16.0) gm/dl Hct 44.3 (35-47) % MCV 98.4 (78-100) fl MCH 32.2 H (26-32) pg MCHC 32.7 (32-36) g/dl RDW 13.3 (11.5-14.0) % Plt Count 307 (150-450) K/mm3 MPV 8.4 (6-9.5) fl Gran % 69.5 H (36.0-66.0) % Eos # (Auto) 0.19 (0-0.5) Absolute Lymphs (auto) 1.45 (1.0-4.6) Absolute Monos (auto) 0.44 (0.0-1.3) Lymphocytes % 21.0 L (24.0-44.0) % Monocytes % 6.4 (0.0-12.0) % Eosinophils % 2.8 (0.00-5.0) % Basophils % 0.3 (0.0-0.4) % Absolute Granulocytes 4.80 (1.4-6.9) Basophils # 0.02 (0-0.4) Sodium (137-145) mmol/L Potassium (3.5-5.1) mmol/L Chloride (98-107) mmol/L Carbon Dioxide (22-30) mmol/L Anion Gap (5-15) MEQ/L BUN (7-17) mg/dL Creatinine (0.52-1.04) mg/dL Estimated GFR ML/MIN Glucose (74-106) mg/dL Calcium (8.4-10.2) mg/dL Total Bilirubin (0.2-1.3) mg/dL AST (14-36) U/L ALT (0-35) U/L Alkaline Phosphatase (38-126) U/L Troponin I (0.000-0.034) ng/mL Serum Total Protein (6.3-8.2) g/dL Albumin (3.5-5.0) g/dL Urine Color (YELLOW) Urine Appearance (CLEAR) Urine pH (5-6) Ur Specific [place] (1.005-1.025) Urine Protein (Negative) Urine Ketones (NEGATIVE) Urine Blood (0-5) Leo/ul Urine Nitrite (NEGATIVE) Urine Bilirubin (NEGATIVE) Urine Urobilinogen (0-1) mg/dL Ur Leukocyte Esterase (NEGATIVE) Urine WBC (Auto) (0-5) /HPF Urine RBC (Auto) (0-2) /HPF U Epithel Cells (Auto) (FEW) /HPF Urine Bacteria (Auto) (NEGATIVE) /HPF Urine Mucus (Auto) (NEGATIVE) /HPF Urine Glucose (NEGATIVE) mg/dL - Progress Progress: improved, re-examined Counseled pt/family regarding: lab results, diagnosis, need for follow-up, rad results - Departure Time of Disposition: 12:27 Departure Disposition: Home Clinical Impression: Hypertensive urgency Condition: Stable Critical Care Time: Yes Critical Care Time(excluding separately billable procedures): 30-74 minutes Referrals: SOCORRO BARNES [Primary Care Provider] - Additional Instructions: Take 40mg Lisinipril daily and 25mg hydrochlorothiazide daily. monitor your blood pressure morning, noon and night and record number. call your primary doctor today for an appointment and further management. Prescriptions: Hydrochlorothiazide 25 mg [hydroDIURIL 25 MG] 25 mg PO DAILY #10 tablet
[2018-07-07] MEDS ORDERED: VASOTEC I.V. 2.5 MG IV ONE ×4 (09:14→11:18)
[2018-07-07] MEDS ORDERED: MORPHINE SULFATE 2 MG INJ IV ONE (09:18)
[2018-07-07] MEDS ORDERED: Zofran 4 MG/2 ML VIAL IV ONE (09:19)
[2018-07-07] MEDS ORDERED: Zofran 4 MG/2 ML VIAL ONE (09:21)
[2018-07-07] MEDS ORDERED: MORPHINE SULFATE 2 MG INJ ONE (09:22)
[2018-07-07 09:25] LABS: BASOPHIL % 0.3 % (0.0-0.4); Basophil (Absolute #) 0.02 (0-0.4); Eosinophil % 2.8 % (0.00-5.0); Eosinophil (Absolute #) 0.19 (0-0.5); Granulocytes % 69.5 % (36.0-66.0); Hematocrit 44.3 % (35-47); Hemoglobin 14.5 gm/dl (12.0-16.0); Lymphocyte (Absolute #) 1.45 (1.0-4.6); Mean Cell Volume 98.4 fl (78-100); Mean Corpuscular Hemoglobin 32.2 pg (26-32); Mean Corpuscular Hgb Concent. 32.7 g/dl (32-36); Mean Platelet Volume 8.4 fl (6-9.5); Monocyte (Absolute #) 0.44 (0.0-1.3); Monocytes % 6.4 % (0.0-12.0); Platelet Count 307 K/mm3 (150-450); Red Cell Distribution Width 13.3 % (11.5-14.0); White Blood Count 6.9 K/mm3 (4.0-10.5)
--- NOTE | 2018-07-07 09:54 | XRAY ---
Indication: Headache and blurred vision. Hypertension. Multiple contiguous axial images obtained through the head without contrast. Comparison: None Normal appearing brain parenchyma, ventricles, and bony calvarium. Visualized paranasal sinuses and mastoid air cells are clear. Impression: Normal CT head without contrast exam. CT DI 70.10
[2018-07-07 10:09] LABS: Appearance CLEAR (CLEAR); Bilirubin NEGATIVE (NEGATIVE); Blood SMALL Ery/ul (0-5); Glucose NEGATIVE (NEGATIVE); Ketones NEGATIVE (NEGATIVE); Leukocyte Esterase TRACE (NEGATIVE); Nitrite NEGATIVE (NEGATIVE); Protein,Urine Dip 100 (Negative); Specific Gravity 1.011 (1.005-1.025); Urobilinogen NEGATIVE mg/dL (0-1)
[2018-07-07 10:35] LABS: ALKALINE PHOSPHATASE 154 U/L (38-126); ANION GAP 13.7 MEQ/L (5-15); BLOOD UREA NITROGEN 17 mg/dL (7-17); CHLORIDE 102 mmol/L (98-107); Calcium 10.4 mg/dL (8.4-10.2); Carbon Dioxide 28 mmol/L (22-30); Creatinine 1 0.86 mg/dL (0.52-1.04); Glucose 198 mg/dL (74-106); Potassium 4.6 mmol/L (3.5-5.1); SGOT/AST 28 U/L (14-36); SGPT/ALT 22 U/L (0-35); SODIUM 139 mmol/L (137-145); Total Protein 7.1 g/dL (6.3-8.2)
[2018-07-07 11:10] VITALS: BP 191/104
[2018-07-07] MEDS ORDERED: LOPRESSOR 5 MG/5 ML INJECTION IV ONE ×2 (12:19→12:33)
[2018-07-07 12:33] VITALS: PULSE 97; O2SAT 95
== END 2018-07-07 13:03 | disposition home or self-care (01) ==
LOC: ED 08:45
DX: I16.0 Hypertensive urgency (principal); R51 Headache; Z79.899 Other long term (current) drug therapy; E11.9 Type 2 diabetes mellitus without complications; Z79.84 Long term (current) use of oral hypoglycemic drugs
CPT/HCPCS: 36000; 36415; 70450; 80053; 81001; 82962; 84484; 85025; 93005; 93041; 96374; 96375; 96376; 99285; J2270; J2405